=== PATIENT | female | born 1985 | race Two or more races ===

== ENCOUNTER 2018-09-07 18:13 | Emergency (ER) | payer SELFPAY ==
[~2018-09-07] VITALS: Ht 157.5 cm; Wt 61.7 kg
--- NOTE | 2018-09-07 18:28 | NUR ---
PT BIBRA [id number] FROM [facility] C/O ANXIETY ATTACK, HEARING VOICES, PT IS AAOX3, NOT IN RESPIRATORY DISTRESS, V/S STABLE, KEPT RESTED AND COMFORTABLE, WILL CONTINUE TO MONITOR.
--- NOTE | 2018-09-07 18:30 | NUR ---
SEEN AND EXAMINED BY .
--- NOTE | 2018-09-07 18:32 | NUR ---
URINE SPECIMEN COLLECTED AND SENT TO LAB.
--- NOTE | 2018-09-07 18:35 | NUR ---
ER PHLEB AT BEDSIDE FOR BLOOD DRAW.
[2018-09-07 18:44] LABS: APPEARANCE,URINE Clear (CLEAR); BILIRUBIN,URINE Negative (NEGATIVE); BLOOD, URINE Trace-intact Ery/uL (NEGATIVE); COLOR,URINE Yellow (YELLOW); KETONES,URINE Negative (NEGATIVE); LEUKOCYTE ESTERASE ,URINE Negative (NEGATIVE); NITRITE, URINE Negative (NEGATIVE); PH,URINE 5.5 (5.0-8.0); PROTEIN,URINE Negative (NEGATIVE); UGLUCOSE Negative (NEGATIVE)
[2018-09-07 18:44] LABS: BASOPHILS # (AUTO) 0.1 /CMM (0.0-0.2); BASOPHILS % (AUTO) 0.8 % (0.0-2.0); EOSINOPHILS % (AUTO) 2.9 % (0.0-6.0); HEMATOCRIT 35 % (33-45); HEMOGLOBIN 12.2 g/dL (11.5-14.8); LYMPHOCYTES # (AUTO) 1.5 /CMM (0.8-4.8); LYMPHOCYTES % (AUTO) 23.2 % (20.0-44.0); MEAN CORPUSCULAR HGB CONC 35 g/dl (31.0-36.0); MEAN CORPUSCULAR VOLUME 83 fL (82-100); MONOCYTES # (AUTO) 0.6 /CMM (0.1-1.30); MONOCYTES % (AUTO) 8.9 % (2.0-12.0); NEUTROPHILS # (AUTO) 4.2 /CMM (1.8-8.9); NEUTROPHILS % (AUTO) 64.2 % (43.0-81.0); PLATELET COUNT (AUTO) 258 /CMM (150-450); RED BLOOD CELL COUNT(AUTO) 4.22 MIL/uL (4.0-5.2); WHITE BLOOD COUNT (AUTO) 6.5 K/uL (4.3-11.0)
[2018-09-07 18:50] LABS: CALCIUM, SERUM 8.4 mg/dL (8.5-10.1); CARBON DIOXIDE 25 mmol/L (21-32); CHLORIDE 104 mmol/L (98-107); CREATININE 0.8 mg/dL (0.6-1.3); GLUCOSE 100 mg/dL (74-106); POTASSIUM 3.8 mmol/L (3.5-5.1); SODIUM SERUM 141 mmol/L (136-145); UREA NITROGEN, BLOOD 13 mg/dL (7-18)
[2018-09-07 19:03] LABS: BACTERIA,URINE Rare /HPF (None Seen); SQUAMOUS EPITHELIAL CELL,UR Few /HPF (None Seen); WBC,URINE NONE SEEN /HPF (0-3)
[2018-09-07 19:04] LABS: ACETAMINOPHEN < 2 ug/ml (10-30); ALANINE AMINOTRANSFERASE 23 U/L (12-78); ALBUMIN 3.8 g/dL (3.4-5.0); ALCOHOL, BLOOD 25 mg/dL (0-0); ALKALINE PHOSPHATASE 62 U/L (46-116); ASPARTATE AMINOTRANSFERASE 17 U/L (15-37); BILIRUBIN,DIRECT 0.1 mg/dL (0.0-0.2); BILIRUBIN,TOTAL 0.3 mg/dL (0.2-1.0); SALICYLATE 1.5 mg/dL (2.8-20.0); TOTAL PROTEIN, SERUM 7.1 g/dL (6.4-8.2)
[2018-09-07] MEDS ORDERED: OLANZAPINE 5 MG TABLET PO ONE (19:30)
[2018-09-07] MEDS ORDERED: OLANZAPINE 10 MG VIAL IM ONE (20:15)
[2018-09-07] MEDS ORDERED: OLANZAPINE 5 MG TABLET ONE (20:20)
[2018-09-07] MEDS ORDERED: diphenhydrAMINE HCL 50 MG/ML VIAL ONE (21:53)
[2018-09-07] MEDS ORDERED: LORAZEPAM INJ 2 MG/ML VIAL ONE (21:53)
[2018-09-07] MEDS ORDERED: diphenhydrAMINE HCL 50 MG/ML VIAL IM ONE (22:00)
[2018-09-07] MEDS ORDERED: LORAZEPAM INJ 2 MG/ML VIAL IM ONE (22:00)
--- NOTE | 2018-09-07 22:25 | NUR ---
Pt increasingly agitated, trying to elope from facility. Pt medicated as ordered.
--- NOTE | 2018-09-08 03:56 | NUR ---
pt sleeping in gurney, no signs of distress noted. pt vital signs stable. will cont to monitor pt.
--- NOTE | 2018-09-08 05:46 | NUR ---
Pt ambulatory to restroom
--- NOTE | 2018-09-08 06:46 | NUR ---
Patient is resting comfortably in bed with eyes closed. Easily aroused. VSS. TAKEN OFF OF RESTRAINTS. COMPLIANT WITH STAFF AT THIS TIME. AMBULATORY.
--- NOTE | 2018-09-08 07:34 | NUR ---
Jefry CHAN at bedside for eval.
--- NOTE | 2018-09-08 07:48 | NUR ---
Patient given written and verbal discharge instructions. Patient verbalizes understanding of instructions. Patient is ambulatory with steady gait. Refuses offer of [facility] placement. Patient given list of available shelters in surrounding area. tap card, and food provided. Left in no apparent distress noted and Appropriate clothing.
[2018-09-08 07:49] VITALS: BP 130/71
== END 2018-09-08 07:48 | disposition home or self-care (01) ==
LOC: ER 18:16
DX: R45.851 Suicidal ideations (principal); R44.0 Auditory hallucinations; F17.210 Nicotine dependence, cigarettes, uncomplicated
CPT/HCPCS: 36415; 80048; 80076; 80305; 80307; 80329; 81001; 85025; 96372 ×2; 99284; G0480; J1200; J2060; J3490; 81000-TC